=== PATIENT | female | born 1995 | race American Indian/Alaskan Native ===

== ENCOUNTER 2022-03-05 16:55 | Emergency (ER) | payer MEDICAID ==
[2022-03-05] MEDS ORDERED: IPRATROPIUM 0.02% NEBU 2.5 ML IH ONE ×2 (17:09→17:18)
[2022-03-05] MEDS ORDERED: ALBUTEROL 2.5 MG/3 ML NEBU IH ONE ×2 (17:09→17:18)
[2022-03-05] MEDS ORDERED: MAGNESIUM SULFATE 2 GM/50 ML BAG IV ONE (17:18)
[2022-03-05] MEDS ORDERED: methylPREDNISolone Sod Succinate 125 MG/2 ML INJ IV ONE (17:18)
--- NOTE | 2022-03-05 17:28 | Emergency Department Report ---
ED Asthma HPI - General Chief Complaint: Dyspnea/Respdistress Stated Complaint: ASTHMA ATTACK Time Seen by Provider: 03/05/22 17:18 Source: patient Mode of arrival: Ambulatory Limitations: No Limitations - History of Present Illness Initial Comments: Patient is 26 years old female with history of asthma. Patient presented to the ER with asthma attack. Patient stated that symptoms started just few hours today. Patient is using Symbicort but she does not have a rescue inhaler. Patient denies any fever or chills. No chest pain. MD Complaint: "asthma attack", shortness of breath, wheezing -: Sudden, hour(s) Asthma History: childhood onset Severity: moderate - Related Data Current Asthma Therapy: inhaled steroid Home Medications Medication Instructions Recorded Confirmed Last Taken Vits96/Iron Fum/Folic 1 each PO QDAY 08/06/13 12/21/13 12/14/13 09:00 [ Tablet] Previous Rx's Medication Instructions Recorded Last Taken Type Ferrous Sulfate [Feosol 325 MG tab] 325 mg PO BID #60 tablet 12/22/13 Unknown Rx Ibuprofen [Motrin 600 MG tab] 800 mg PO Q8H PRN #30 tablet 12/22/13 Unknown Rx Vit-Fe Fumar-FA [ 1 each PO QDAY #30 tablet 12/22/13 Unknown Rx Vitamin] Allergies Allergy/AdvReac Type Severity Reaction Status Date / Time azithromycin Allergy Swelling Verified 07/13/13 22:41 erythromycin base Allergy Shortness Verified 11/19/13 23:19 [Erythromycin Base] of Breath ED Review of Systems ROS: Stated complaint: ASTHMA ATTACK Other details as noted in HPI Comment: All other systems reviewed and negative Constitutional: denies: chills, fever Respiratory: shortness of breath, SOB with exertion, SOB at rest, wheezing. denies: cough, orthopnea Cardiovascular: denies: chest pain, palpitations Gastrointestinal: denies: abdominal pain, nausea, vomiting, diarrhea Musculoskeletal: denies: back pain Neurological: denies: headache, weakness, numbness, paresthesias, confusion ED Past Medical Hx - Past Medical History Hx Hypertension: No Hx Diabetes: No Hx Deep Vein Thrombosis: No Hx Renal Disease: No Hx Sickle Cell Disease: No Hx Seizures: No Hx Asthma: Yes (1yr ago) Hx COPD: Yes Hx HIV: No - Surgical History Additional Surgical History: tonsilectomy - Social History Smoking Status: Never Smoker - Medications Home Medications: Home Medications Medication Instructions Recorded Confirmed Last Taken Type Vits96/Iron Fum/Folic 1 each PO QDAY 08/06/13 12/21/13 12/14/13 09:00 History [ Tablet] Ferrous Sulfate [Feosol 325 MG tab] 325 mg PO BID #60 tablet 12/22/13 Unknown Rx Ibuprofen [Motrin 600 MG tab] 800 mg PO Q8H PRN #30 tablet 12/22/13 Unknown Rx Vit-Fe Fumar-FA [ 1 each PO QDAY #30 tablet 12/22/13 Unknown Rx Vitamin] ED Physical Exam - General Limitations: No Limitations General appearance: alert, in distress - Head Head exam: Present: atraumatic, normocephalic, normal inspection - Eye Eye exam: Present: normal appearance - ENT ENT exam: Present: normal exam, normal orophraynx, mucous membranes moist - Neck Neck exam: Present: normal inspection, full ROM. Absent: tenderness, meningismus - Respiratory Respiratory exam: Present: respiratory distress, wheezes, rhonchi, accessory muscle use, decreased breath sounds, prolonged expiratory. Absent: rales - Cardiovascular Cardiovascular Exam: Present: regular rate, normal rhythm, normal heart sounds - GI/Abdominal GI/Abdominal exam: Present: soft, normal bowel sounds. Absent: distended, tenderness, guarding, rebound, rigid, organomegaly, mass, bruit, pulsatile mass, hernia - Extremities Exam Extremities exam: Present: normal inspection, full ROM, normal capillary refill. Absent: tenderness ED Course Vital Signs 03/05/22 03/05/22 03/05/22 17:00 17:25 17:35 Temperature 98.2 F 98.9 F Pulse Rate 56 L 102 H Pulse Rate [ 92 H Bilateral] Respiratory 22 25 H Rate Respiratory 24 Rate [Bilateral ] Blood Pressure 113/72 116/68 O2 Sat by Pulse 97 100 Oximetry ED Medical Decision Making - Lab Data Result diagrams: 03/05/22 Unknown 03/05/22 Unknown - Radiology Data Radiology results: report reviewed - Medical Decision Making Patient is 26 years old female with history of asthma. Patient presented to the ER with asthma attack. Patient stated that symptoms started just few hours toda y. Patient is using Symbicort but she does not have a rescue inhaler. Patient denies any fever or chills. No chest pain. Patient received albuterol, Atrovent, Solu-Medrol and magnesium sulfate. Chest x-ray is unremarkable. Labs reviewed and is unremarkable. Patient stated that she is feeling much better. Patient given prescription for albuterol and prednisone and advised to follow-up with her primary doctor in the next 2 to 3 days and to return to the ER if she develop any new symptoms. Critical care attestation.: If time is entered above; I have spent that time in minutes in the direct care of this critically ill patient, excluding procedure time. ED Disposition Clinical Impression: Acute asthma exacerbation Disposition: 01 HOME / SELF CARE / HOMELESS Is pt being admited?: No Condition: Stable Instructions: Asthma, Adult Referrals: DEEDEE PIMENTEL MD [Staff Physician] - 3-5 Days
[2022-03-05 17:29] LABS: Basophils # (Auto) 0.1 K/mm3 (0.0-0.1); Basophils % (Auto) 0.9 % (0.0-1.8); Eosinophils # (Auto) 0.3 K/mm3 (0.0-0.4); Eosinophils % (Auto) 3.7 % (0.0-4.3); Hematocrit 38.8 % (30.3-42.9); Hemoglobin 12.6 gm/dl (10.1-14.3); Lymphocytes # (Auto) 2.4 K/mm3 (1.2-5.4); Lymphocytes % (Auto) 32.9 % (13.4-35.0); Mean Corpuscular HGB Conc 32 % (30-34); Mean Corpuscular Volume 83 fl (79-97); Monocytes # (Auto) 0.4 K/mm3 (0.0-0.8); Monocytes % (Auto) 5.2 % (0.0-7.3); Platelet Count 353 K/mm3 (140-440); Red Blood Count 4.67 M/mm3 (3.65-5.03); Red Cell Distribution Width 14.7 % (13.2-15.2)
[2022-03-05 17:58] LABS: Blood Urea Nitrogen TNR mg/dL (7-17)
[2022-03-05 17:59] LABS: BUN/Creatinine Ratio TNR; Calcium TNR mg/dL (8.4-10.2); Hemolysis Index TNR
--- NOTE | 2022-03-05 18:11 | XRay Report ---
XR chest 1V ap INDICATION / CLINICAL INFORMATION: SOB COMPARISON: 07/25/2010 FINDINGS: SUPPORT DEVICES: None. HEART / MEDIASTINUM: No significant abnormality. LUNGS / PLEURA: Lungs are clear. Costophrenic sulci are sharp. No pneumothorax. ADDITIONAL FINDINGS: No significant additional findings. IMPRESSION: 1. No acute findings. Signer Name: John Iqbal MD Signed: 03/05/2022 6:06 PM Workstation Name: [id number]
[2022-03-05 19:02] LABS: Blood Urea Nitrogen 6 mg/dL (7-17); Hemolysis Index 11
[2022-03-05 19:04] LABS: BUN/Creatinine Ratio 9
[2022-03-05 20:25] VITALS: BP 116/70
== END 2022-03-05 20:26 | disposition home or self-care (01) ==
LOC: ED 16:55
DX: J45.901 Unspecified asthma with (acute) exacerbation (principal); Z88.1 Allergy status to other antibiotic agents
CPT/HCPCS: 36415; 71045; 80048; 85025; 94644; 96365; 96375; 99284; J2930; J3475